=== PATIENT | male | born 1935 | race Caucasian/White ===

== ENCOUNTER 2020-03-06 10:01 | Inpatient (IN) ==
[2020-03-06 11:09] LABS: Hematocrit 41.2 % (40.1-51.0); Hemoglobin 14.5 g/dL (13.7-17.5); Mean Cell Volume 90.2 fL (80.0-100.0); Mean Corpuscular HGB Conc 35.2 g/dL (31.0-36.0); Mean Platelet Volume 10.5 fL (7.4-10.4); Platelet Count 216 K/mcL (140-440); RBC 4.57 M/mcL (4.63-6.08); Red Cell Distribution Width 11.8 % (11.5-14.5); WBC 11.8 K/mcL (4.50-11.00)
[2020-03-06 11:28] LABS: ALT/SGPT 35 U/l (0-40); AST/SGOT 36 U/l (0-37); Albumin 3.3 gm/dL (3.2-5.2); Alkaline Phosphatase 49 U/L (39-117); Bilirubin,Total 0.6 mg/dL (0.0-1.0); Blood Urea Nitrogen 21 mg/dl (8-23); Calcium 8.8 mg/dl (8.6-10.4); Carbon Dioxide 22 mmol/L (22-30); Globulin 3.4 gm/dL (2.2-3.7); Glomerular Filtration Rate 56; Glucose 98 mg/dL (70-105)
[2020-03-06] MEDS ORDERED: ACETAMINOPHEN 325 MG TABLET PO ONE (11:35)
[2020-03-06 11:40] LABS: Chloride 95 mmol/L (96-108)
[2020-03-06 11:43] LABS: Band Neutrophils % 3 % (0-10); Lymphocytes % 8 % (15-49); Monocytes % (Manual) 5 % (1-12); Platelet Estimate NORMAL (NORMAL); RBC Morphology NORMAL (NORMAL); Reactive Lymphocytes 3 % (0-2); Segmented Neutrophils % 81 % (38-78)
--- NOTE | 2020-03-06 12:28 | XRay Report ---
CLINICAL INFORMATION: sob, covid + COMPARISON: 03/03/2020. FINDINGS: Heart size, mediastinum and pulmonary vessels are normal. Moderate patchy infiltrates have progressed in the mid and lower lungs. No effusions. IMPRESSION: Moderate patchy infiltrates progressing in the mid and lower lungs. Interpreted and Authenticated by: Hayden Johnston 03/06/20
[2020-03-06] MEDS ORDERED: AZITHROMYCIN 500 MG in DEXTROSE 5% IN WATER 250 ML IV ONE (12:31)
[2020-03-06 12:32] LABS: Appearance,Urine CLEAR; Bacteria,Urine 0 /hpf (0); Bilirubin,Urine NEG (NEG); Color,Urine YELLOW; Culture Indicated,Urine NO; Glucose,Urine (UA) NEGATIVE (NEG); Ketones,Urine NEG (NEG); Leukocyte Esterase,Urine NEG /uL (NEG); Mucus,Urine FEW /hpf (0); Nitrate,Urine NEG (NEG); Protein,Urine NEG (NEG); Specific Gravity,Urine 1.018 (1.000-1.035); Urine Blood 0.03 mg/dL (<0.03); Urine RBC < 1 /hpf (0-1); Urine Squamous Epithelial Cell 0 /hpf (0-4); Urine WBC 1 /hpf (0-4); Urobilinogen,Urine NEG (NEG)
--- NOTE | 2020-03-06 12:43 | Cat Scan Report ---
CLINICAL INFORMATION: Confusion Covid positive COMPARISON: None. TECHNIQUE: 2.5 mm helical slices were obtained in the skull base to vertex. Following reconstruction, axial reformatted images were reviewed at bone and parenchymal windows. The exam was performed using radiation dose optimization techniques including, but not limited to, automated exposure control, adjustment of the mA and/or kV according to patient size and use of iterative reconstruction technique. FINDINGS: The ventricles, sulci, fissures, and cisterns are symmetrically enlarged compatible with mild age-related atrophy. There is no subdural hemorrhage or other extra-axial fluid collection or mass appreciated. Moderate punctate calcifications seen within both globus pallidus and right dentate nucleus region of the right cerebellum. These are likely physiologic. There are also small perivascular calcifications in the stout radiata fibers of the frontal and parietal region. There is no intracerebral hemorrhage, mass effect or edema. Bone windows show no osseous abnormality.. IMPRESSION: Mild atrophy with chronic ischemic changes in the deep cerebral white matter compatible with age. Calcifications in both globus pallidus, right dentate nucleus and perivascular regions of the frontal parietal centrum semiovale regions is likely physiologic. Occasionally, this finding can indicate hypoparathyroidism, pseudohypoparathyroidism and a variety of other rare conditions.. Please correlate with serum calcium levels. Interpreted and Authenticated by: Hayden Johnston 03/06/20
--- NOTE | 2020-03-06 12:51 | Emergency Department Note ---
HPI General Chief complaint: Cold/Flu Symptoms Stated complaint: COVID + Time Seen by Provider: 03/06/20 10:08 Source: patient Mode of arrival: ambulatory Limitations: no limitations History of Present Illness HPI Narrative: Narrative: 84-year-old male presents with generalized not feeling well. Was recently diagnosed with COVID. States he is short of breath but it does not really bother him. States the biggest complaint is generalized weakness. States he cannot quite describe it but he can just feel something is wrong and does not feel good. He is fallen multiple times in the last 24 hours. Unsure if he is hit his head. Unsure if he is lost consciousness but does not believe so. Denies being on any blood thinners. Denies any head or neck pain. No back pain. States he knows he is just confused and delirious and cannot put a thought together and is getting worse and worse. He is unsure if it is related to his COVID or not. His daughter brings him in today. She was available to talk to by phone but was not in the ER with him. She states that he is more and more confused and just generally weak and I cannot take care of him at home. She is afraid something else is going on as he's getting progressively worse. Related Data Home Medications Medication Instructions Recorded Confirmed aspirin 81 mg tablet,delayed 81 mg PO QDAY 02/27/20 03/06/20 release Previous Rx's Medication Instructions Recorded albuterol sulfate [Ventolin HFA] 2 puff INH Q4-6HP PRN #1 inhaler 03/04/20 azithromycin 250 mg PO QDAY 4 Days #4 tab 03/04/20 hydroxychloroquine 200 mg PO BID #14 tab 03/04/20 prednisone 20 mg PO QDAY #7 tab 03/04/20 Allergies Allergy/AdvReac Type Severity Reaction Status Date / Time No Known Drug Allergies Allergy Verified 03/06/20 10:05 Review of Systems ROS ROS Narrative: Narrative: All systems ED: reviewed and negative except as stated. [facility] Narrative Patient History Narrative: Narrative: Medical/Surgical/Family History All Active Problems (Updated 03/06/20 @ 13:49 by JULIANN Melissa) COVID-19 (Acute) Generalized weakness (Acute) Recurrent falls (Acute) Confusion (Acute) Pneumonia due to 2019 novel coronavirus (Acute) Viral syndrome (Acute) Fatigue (Acute) Dyspnea (Acute) Vasovagal syncope (Acute) Compression of lumbar vertebra (Acute) Cellulitis (Acute) Medical History Dyspnea (Acute) Fatigue (Acute) Vasovagal syncope (Acute) Viral syndrome (Acute) Surgical History History of tonsillectomy (Acute) Hx of appendectomy (Acute) Social History Smoking Status: Never smoker Exam Narrative Narrative: Narrative: General Limitations: no limitations General appearance: Present alert (Alert and oriented x4 but very forgetful and at times has a hard time finishing a sentence or putting thoughts together.) Head Head: Present atraumatic and normocephalic Eye Eye: Present normal appearance; Absent conjunctival injection ENT ENT: Present mucous membranes moist Chest Chest: Present symmetric chest wall rise Respiratory Respiratory: Present normal lung sounds bilaterally; Absent respiratory distress, rales/crackles, wheezes, stridor and accessory muscle use Cardiovascular Cardiovascular: Present regular rate and normal heart sounds Adbominal Abdominal: Present soft and normal bowel sounds; Absent distention, tenderness and guarding Extremities Extremities: Present normal inspection Neurological Neurological: Present alert and oriented X3 Psychiatric Psychiatric: Present normal affect and normal mood Skin Skin: Present warm (WNL), hot, diaphoretic and intact Course Vital Signs Vital signs: Vital Signs Temperature 100.8 F H 03/06/20 10:02 Pulse Rate 89 03/06/20 10:02 Respiratory Rate 24 H 03/06/20 10:02 Blood Pressure 154/88 03/06/20 10:02 Pulse Oximetry (%) 97 03/06/20 10:02 Temperature 100.8 F H 03/06/20 11:44 Pulse Rate 78 03/06/20 13:30 Respiratory Rate 24 H 03/06/20 13:30 Blood Pressure 133/78 03/06/20 13:30 Pulse Oximetry (%) 91 03/06/20 13:30 [facility] MDM Narrative Medical decision making narrative: Narrative: Patient's vital signs remained stable throughout his stay including O2 sats of 98 to 99% on room air. He is febrile with a temp in the 100s. He does show frequent poor memory and difficulty putting thoughts and sentences together. He has fallen frequently in the family is very much pushing for admission. We did give him a dose of IV antibiotics for progressing infiltrates in his lungs. I do have a call into the [facility] to see if patient meets admission criteria at 1254 At 1345 I did speak with the hospitalist, Dr. Warner who agrees to accept this patient. This patient will probably need to be admitted and potentially placement somewhere where he has more help than they are able to give him at home. Lab Data Lab results reviewed: Yes I reviewed the patient's lab results. Result diagrams: 03/06/20 10:20 03/06/20 10:20 Labs: Lab Results 03/06/20 03/06/20 03/06/20 Range/Units 10:20 10:20 10:20 WBC 11.8 H (4.50-11.00) K/mcL RBC 4.57 L (4.63-6.08) M/mcL Hgb 14.5 (13.7-17.5) g/dL Hct 41.2 (40.1-51.0) % MCV 90.2 (80.0-100.0) fL MCH 31.7 (26.0-34.0) pg MCHC 35.2 (31.0-36.0) g/dL RDW 11.8 (11.5-14.5) % Plt Count 216 (140-440) K/mcL MPV 10.5 H (7.4-10.4) fL Total Counted 100 Seg Neutrophils % 81 H (38-78) % Band Neutrophils % 3 (0-10) % Lymphocytes % 8 L (15-49) % Monocytes % (Manual) 5 (1-12) % Reactive Lymphocytes 3 H (0-2) % Platelet Estimate Normal (NORMAL) RBC Morphology Normal (NORMAL) VBG Lactic Acid 1.8 (0.5-2.0) mmol/L Sodium 131 L (133-145) mmol/L Potassium 4.0 (3.3-5.1) mmol/L Chloride 95 L (96-108) mmol/L Carbon Dioxide 22 (22-30) mmol/L Anion Gap 14.0 (8-16) BUN 21 (8-23) mg/dl Creatinine 1.2 (0.7-1.2) mg/dl GFR Calculation 56 Glucose 98 (70-105) mg/dL Calcium 8.8 (8.6-10.4) mg/dl Total Bilirubin 0.6 (0.0-1.0) mg/dL AST 36 (0-37) U/l ALT 35 (0-40) U/l Alkaline Phosphatase 49 (39-117) U/L Total Protein 6.7 (5.9-8.4) gm/dL Albumin 3.3 (3.2-5.2) gm/dL Globulin 3.4 (2.2-3.7) gm/dL Albumin/Globulin Ratio 1.0 (1.0-2.3) Procalcitonin (<0.10) ng/mL Urine Color Urine Appearance Urine pH (5.0-9.0) Ur Specific [place] (1.000-1.035) Urine Protein (NEG) mg/dL Urine Glucose (UA) (NEG) mg/dL Urine Ketones (NEG) mg/dL Urine Occult Blood (<0.03) mg/dL Urine Nitrate (NEG) Urine Bilirubin (NEG) mg/dL Urine Urobilinogen (NEG) mg/dL Ur Leukocyte Esterase (NEG) /uL Urine RBC (0-1) /hpf Urine WBC (0-4) /hpf Ur Squamous Epith Cells (0-4) /hpf Urine Bacteria (0) /hpf Urine Mucus (0) /hpf Ur Culture Indicated? 03/06/20 03/06/20 Range/Units 10:20 11:55 WBC (4.50-11.00) K/mcL RBC (4.63-6.08) M/mcL Hgb (13.7-17.5) g/dL Hct (40.1-51.0) % MCV (80.0-100.0) fL MCH (26.0-34.0) pg MCHC (31.0-36.0) g/dL RDW (11.5-14.5) % Plt Count (140-440) K/mcL MPV (7.4-10.4) fL Total Counted Seg Neutrophils % (38-78) % Band Neutrophils % (0-10) % Lymphocytes % (15-49) % Monocytes % (Manual) (1-12) % Reactive Lymphocytes (0-2) % Platelet Estimate (NORMAL) RBC Morphology (NORMAL) VBG Lactic Acid (0.5-2.0) mmol/L Sodium (133-145) mmol/L Potassium (3.3-5.1) mmol/L Chloride (96-108) mmol/L Carbon Dioxide (22-30) mmol/L Anion Gap (8-16) BUN (8-23) mg/dl Creatinine (0.7-1.2) mg/dl GFR Calculation Glucose (70-105) mg/dL Calcium (8.6-10.4) mg/dl Total Bilirubin (0.0-1.0) mg/dL AST (0-37) U/l ALT (0-40) U/l Alkaline Phosphatase (39-117) U/L Total Protein (5.9-8.4) gm/dL Albumin (3.2-5.2) gm/dL Globulin (2.2-3.7) gm/dL Albumin/Globulin Ratio (1.0-2.3) Procalcitonin 0.12 H (<0.10) ng/mL Urine Color Yellow Urine Appearance Clear Urine pH 5.0 (5.0-9.0) Ur Specific [place] 1.018 (1.000-1.035) Urine Protein Neg (NEG) mg/dL Urine Glucose (UA) Negative (NEG) mg/dL Urine Ketones Neg (NEG) mg/dL Urine Occult Blood 0.03 A (<0.03) mg/dL Urine Nitrate Neg (NEG) Urine Bilirubin Neg (NEG) mg/dL Urine Urobilinogen Neg (NEG) mg/dL Ur Leukocyte Esterase Neg (NEG) /uL Urine RBC < 1 (0-1) /hpf Urine WBC 1 (0-4) /hpf Ur Squamous Epith Cells 0 (0-4) /hpf Urine Bacteria 0 (0) /hpf Urine Mucus Few (0) /hpf Ur Culture Indicated? No Radiology Data Radiology results reviewed: Yes I reviewed the patient's radiology results. Discharge Plan Patient/Caregiver Discharge Instructions Pt seen by HEALTH INFORMATION SYSTEMS TECHNICIAN/PA only: Yes Clinical Impression: COVID-19, Generalized weakness, Recurrent falls, Confusion Patient Disposition: Xfer As Outpt/Obs ([facility]) Condition: Fair Follow up with: Yayo Gan DO [Primary Care Provider] - Prescriptions: No Action aspirin 81 mg tablet,delayed release (DR/EC) 81 mg PO QDAY RF: 0 albuterol sulfate [Ventolin HFA] 1 PUFF inhaler 2 puff INH Q4-6HP PRN (Reason: Wheezing) Qty: 1 RF: 0 hydroxychloroquine 200 mg tablet 200 mg PO BID Qty: 14 RF: 0 azithromycin 250 mg tablet 250 mg PO QDAY 4 Days Qty: 4 RF: 0 prednisone 20 mg tablet 20 mg PO QDAY Qty: 7 RF: 0
[2020-03-06] MEDS ORDERED: 0.9 % SODIUM CHLORIDE 1,000 ML IV ONE (13:59)
[2020-03-06] MEDS ORDERED: DEXAMETHASONE 4 MG TABLET PO ONE (14:15)
--- NOTE | 2020-03-06 14:18 | Internal Med History&Physical ---
HPI History of Present Illness Patient information: Note initiated : 03/06/20 at 2:09 pm Service Date, if different from initiated Date: [] Patient: Billy Del Valle 84 y/o M admitted on for COVID +. Chief Complaint: [] History of present illness: Mr. Del Valle is a 84 year old M Who presents the ED with generalized weakness falling confusion. He was diagnosed with COVID 21st of minor care but then went back into the ED on the because he felt weak and confused. Vital signs were stable that time and no other critical findings patient was discharged this medication. Patient felt he was doing better but then yesterday started becoming worse again. He describes increasing weakness, he is fallen several times. Had increased confusion as he states he is quite foggy. He is unsteady on his feet. He has a cough which is mildly productive. He complains of some shortness of breath. Family stated he has confusion at times but worse lately. In the ED included a CT brain which showed some mild atrophy and some chronic ischemic changes but no acute pathology. Chest x-ray bilateral infiltrates. Review of Systems: Positives as above including headache and some chest pain when he coughs. Denies fever/chills/nausea/vomiting/abdominal pain/cough/dyspnea/diarrhea. Remaining 10 point review of system reviewed negative PFSH PFSH All Active Problems (Updated 03/06/20 @ 13:49 by JULIANN Melissa) COVID-19 (Acute) Generalized weakness (Acute) Recurrent falls (Acute) Confusion (Acute) Pneumonia due to 2019 novel coronavirus (Acute) Viral syndrome (Acute) Fatigue (Acute) Dyspnea (Acute) Vasovagal syncope (Acute) Compression of lumbar vertebra (Acute) Cellulitis (Acute) Medical History Dyspnea (Acute) Fatigue (Acute) Vasovagal syncope (Acute) Viral syndrome (Acute) Surgical History History of tonsillectomy (Acute) Hx of appendectomy (Acute) Social History smoking status: Never smoker MEDS/ALLERGIES Home Medications and Allergies Home Medications Medication Instructions Recorded Confirmed Type aspirin 81 mg tablet,delayed 81 mg PO QDAY 02/27/20 03/06/20 History release albuterol sulfate [Ventolin HFA] 2 puff INH Q4-6HP PRN #1 inhaler 03/04/20 03/06/20 Rx azithromycin 250 mg PO QDAY 4 Days #4 tab 03/04/20 03/06/20 Rx hydroxychloroquine 200 mg PO BID #14 tab 03/04/20 03/06/20 Rx prednisone 20 mg PO QDAY #7 tab 03/04/20 03/06/20 Rx Allergies Allergy/AdvReac Type Severity Reaction Status Date / Time No Known Drug Allergies Allergy Verified 03/06/20 10:05 EXAM Constitutional Vitals: Temp Pulse Resp BP Pulse Ox 100.8 F H 78 24 H 133/78 91 03/06/20 11:44 03/06/20 13:30 03/06/20 13:30 03/06/20 13:30 03/06/20 13:30 Exam: General: Awake, No acute Distress Eyes/N/T: EOMI, PERRL, dry MM Head/Neck: neck supple, normocephalic atraumatic CV: RRR, No murmurs, normal s1/s2 Pulm: Clear b/l, no wheezing/rhonchi/rales Abd: soft, nontender, +BS x4 Ext: no clubbing/cyanosis/edema Neuro: no focal deficits, moves all extremities, CN 2-12 grossly intact, symmetrical strength b/l upper/lower, sensations intact b/l upper/lower. However, slow to answer questions but although clear and answering. Sometimes after repeat my question. Skin: warm/dry DATA Data Completed and Pending Labs: Labs from last 24 hours 03/06/20 03/06/20 03/06/20 11:55 10:20 10:20 WBC RBC Hgb Hct MCV MCH MCHC RDW Plt Count MPV Total Counted Seg Neutrophils % Band Neutrophils % Lymphocytes % Monocytes % (Manual) Reactive Lymphocytes Platelet Estimate RBC Morphology VBG Lactic Acid 1.8 Sodium Potassium Chloride Carbon Dioxide Anion Gap BUN Creatinine GFR Calculation Glucose Calcium Total Bilirubin AST ALT Alkaline Phosphatase Total Protein Albumin Globulin Albumin/Globulin Ratio Procalcitonin 0.12 H Urine Color Yellow Urine Appearance Clear Urine pH 5.0 Ur Specific [place] 1.018 Urine Protein Neg Urine Glucose (UA) Negative Urine Ketones Neg Urine Occult Blood 0.03 A Urine Nitrate Neg Urine Bilirubin Neg Urine Urobilinogen Neg Ur Leukocyte Esterase Neg Urine RBC < 1 Urine WBC 1 Ur Squamous Epith Cells 0 Urine Bacteria 0 Urine Mucus Few Ur Culture Indicated? No 03/06/20 03/06/20 10:20 10:20 WBC 11.8 H RBC 4.57 L Hgb 14.5 Hct 41.2 MCV 90.2 MCH 31.7 MCHC 35.2 RDW 11.8 Plt Count 216 MPV 10.5 H Total Counted 100 Seg Neutrophils % 81 H Band Neutrophils % 3 Lymphocytes % 8 L Monocytes % (Manual) 5 Reactive Lymphocytes 3 H Platelet Estimate Normal RBC Morphology Normal VBG Lactic Acid Sodium 131 L Potassium 4.0 Chloride 95 L Carbon Dioxide 22 Anion Gap 14.0 BUN 21 Creatinine 1.2 GFR Calculation 56 Glucose 98 Calcium 8.8 Total Bilirubin 0.6 AST 36 ALT 35 Alkaline Phosphatase 49 Total Protein 6.7 Albumin 3.3 Globulin 3.4 Albumin/Globulin Ratio 1.0 Procalcitonin Urine Color Urine Appearance Urine pH Ur Specific [place] Urine Protein Urine Glucose (UA) Urine Ketones Urine Occult Blood Urine Nitrate Urine Bilirubin Urine Urobilinogen Ur Leukocyte Esterase Urine RBC Urine WBC Ur Squamous Epith Cells Urine Bacteria Urine Mucus Ur Culture Indicated? A/P Narrative A/P Narrative: A: *COVID-19 PNA: -low PCT, no bandemia *SIRS: 2/2 above *Encephalopathy (acute on intermittently chronic): 2/2 above -likely underlying MCI vs early dementia *Generalized weakness/fallin/2 above *Hyponatremia: *Volume depletion: *Hyponatremia: *HLD: * P: Remdesivir and dexamethasone -SC pending, hold on abx for now -prn O2 -IS, -IVF - -PT/OT -CM for placement -ppx: Lovenox Time Spent With Patient Time: Total time spent is greater than 50% in coordination of care (as documented) at patient's floor/unit and/or counseling patient:
[2020-03-06] MEDS ORDERED: REMDESIVIR 200 MG in 0.9 % SODIUM CHLORIDE 250 ML IV ONE (15:00)
[2020-03-06] MEDS ORDERED: POTASSIUM CHLORIDE 40 MEQ in DEXTROSE 5% IN WATER 500 ML IV PRN (15:27)
[2020-03-06] MEDS ORDERED: POLYETHYLENE GLYCOL 3350 17 GM PACKET PO PRN (15:27)
[2020-03-06] MEDS ORDERED: 0.9 % SODIUM CHLORIDE 1,000 ML IV SCH (15:27)
[2020-03-06] MEDS ORDERED: IPRATROPIUM/ALBUTEROL SULFATE 1 PUFF INHALER INH PRN ×2 (15:27→16:00)
[2020-03-06] MEDS ORDERED: POTASSIUM CHLORIDE 20 MEQ TABLET PO PRN ×2 (15:27)
[2020-03-06] MEDS ORDERED: ONDANSETRON 4 MG/2 ML VIAL IV PRN (15:27)
[2020-03-06] MEDS ORDERED: SENNOSIDES 1 TABLET PO PRN (15:27)
[2020-03-06] MEDS ORDERED: ACETAMINOPHEN 325 MG TABLET PO PRN (15:27)
[2020-03-06] MEDS ORDERED: MAGNESIUM SULFATE 2 GM/50 ML BAG IV PRN (15:27)
[2020-03-06] MEDS: 0.9 % SODIUM CHLORIDE 10 ML SYRINGE IV SCH (22:23)
[2020-03-07] MEDS: 0.9 % SODIUM CHLORIDE 10 ML SYRINGE IV SCH ×3 (05:14→23:04)
[2020-03-07 06:43] LABS: Basophils # (Auto) 0.01 K/mcL (0.00-0.30); Basophils % (Auto) 0.1 % (0.0-2.0); Eosinophils # (Auto) 0 K/mcL (0.00-0.70); Eosinophils % (Auto) 0 % (0.0-7.0); Granulocytes % (Auto) 88.3 % (38.0-78.0); Hematocrit 37.7 % (40.1-51.0); Hemoglobin 13.1 g/dL (13.7-17.5); Lymphocytes # (Auto) 0.64 K/mcL (1.50-4.80); Lymphocytes % (Auto) 7.4 % (15.5-49.0); Mean Cell Volume 92.4 fL (80.0-100.0); Mean Corpuscular HGB Conc 34.7 g/dL (31.0-36.0); Mean Platelet Volume 10.6 fL (7.4-10.4); Monocytes # (Auto) 0.36 K/mcL (0.10-0.90); Monocytes % (Auto) 4.2 % (1.0-12.0); Platelet Count 207 K/mcL (140-440); RBC 4.08 M/mcL (4.63-6.08); Red Cell Distribution Width 12.1 % (11.5-14.5); WBC 8.7 K/mcL (4.50-11.00)
[2020-03-07 06:47] LABS: ALT/SGPT 47 U/l (0-40); AST/SGOT 43 U/l (0-37); Albumin 2.7 gm/dL (3.2-5.2); Albumin/Globulin Ratio 0.8 (1.0-2.3); Alkaline Phosphatase 45 U/L (39-117); Bilirubin,Direct < 0.2 mg/dL (0.0-0.3); Bilirubin,Total 0.5 mg/dL (0.0-1.0); Blood Urea Nitrogen 19 mg/dl (8-23); Carbon Dioxide 20 mmol/L (22-30); Chloride 104 mmol/L (96-108); Globulin 3.2 gm/dL (2.2-3.7); Glomerular Filtration Rate 83; Glucose 125 mg/dL (70-105); Lactate Dehydrogenase 336 U/L (94-250); Phosphorous 3.5 mg/dL (2.7-4.5); Triglycerides 61 mg/dl (<150)
--- NOTE | 2020-03-07 07:28 | Internal Med Progress Note ---
SUBJECTIVE Subjective Patient information: Note initiated : 03/07/20 at 7:25 am Service Date, if different from initiated Date: [] Patient: Billy Del Valle 84 y/o M admitted on 03/06/20 for COVID +. Chief Complaint: [] Interval history: History of present illness: Mr. Del Valle is a 84 year old M Who presents the ED with generalized weakness falling confusion. He was diagnosed with COVID of minor care but then went back into the ED on the because he felt weak and confused. Vital signs were stable that time and no other critical findings patient was discharged this medication. Patient felt he was doing better but then yesterday started becoming worse again. He describes increasing weakness, he is fallen several times. Had increased confusion as he states he is quite foggy. He is unsteady on his feet. He has a cough which is mildly productive. He complains of some shortness of breath. Family stated he has confusion at times but worse lately. In the ED included a CT brain which showed some mild atrophy and some chronic ischemic changes but no acute pathology. Chest x-ray bilateral infiltrates. 03/07 Feeling better today. Minimal cough. No shortness of breath while in bed. A little stronger today. Review of Systems: denies headache/fever/chills/nausea/vomiting/chest or abdominal pain/diarrhea. Otherwise see above. Constitutional Vitals: Vital Signs Temp Pulse Resp BP Pulse Ox 97.8 F 71 18 138/88 93 03/07/20 04:01 03/07/20 01:36 03/07/20 00:00 03/07/20 04:01 03/07/20 04:10 Period Temp Pulse Resp BP Sys/Ann Pulse Ox Last 24 Hr 97.5 F-100.8 F 63-91 16-31 133-169/71-99 91-99 Intake and Output 03/06/20 03/07/20 03/07/20 21:59 05:59 13:59 Intake Total 1500 Output Total 1000 1100 Balance 500 -1100 Weight 76.793 kg Intake & Output: Intake & Output 03/06/20 03/07/20 03/07/20 21:59 05:59 13:59 Intake Total 1500 Output Total 1000 1100 Balance 500 -1100 Weight 76.793 kg Intake: IV 1500 Sodium Chloride 0.9% 1,000 ml @ 1000 Wide Open IV BOLUS ONE Rx#: [id number] Zithromax 500 mg In Dextrose 5% 250 in Water 250 ml @ 250 mls/hr IV ONCE ONE Rx#:[id number] Remdesivir 200 mg In Sodium 250 Chloride 0.9% 250 ml @ 500 mls/ hr IV ONCE ONE Rx#:[id number] Output: Void Amount 1000 1100 Other: Urine Appearance Clear Clear Urine Color Pale Pale Exam: General: Awake, No acute Distress Eyes/N/T: EOMI, Head/Neck: neck supple, CV: RRR, No murmurs, Pulm: Clear b/l, no wheezing/rhonchi/rales Abd: soft, nontender, +BS x4 Ext: no clubbing/cyanosis/edema Neuro: no focal deficits, moves all extremities, mentation more clear today Skin: warm/dry OBJ DATA Labs CBC & Chem 7: 03/07/20 04:44 03/07/20 04:44 Labs: Abnormal Lab Results 03/07/20 03/07/20 03/06/20 04:44 04:44 11:55 WBC RBC 4.08 L Hgb 13.1 L Hct 37.7 L MPV 10.6 H Gran % 88.3 H Lymph % (Auto) 7.4 L Lymph # (Auto) 0.64 L Seg Neutrophils % Lymphocytes % Reactive Lymphocytes Sodium Chloride Carbon Dioxide 20 L Glucose 125 H Calcium 8.0 L AST 43 H ALT 47 H Lactate Dehydrogenase 336 H Albumin 2.7 L Albumin/Globulin Ratio 0.8 L Procalcitonin Urine Occult Blood 0.03 A 03/06/20 03/06/20 03/06/20 10:20 10:20 10:20 WBC 11.8 H RBC 4.57 L Hgb Hct MPV 10.5 H Gran % Lymph % (Auto) Lymph # (Auto) Seg Neutrophils % 81 H Lymphocytes % 8 L Reactive Lymphocytes 3 H Sodium 131 L Chloride 95 L Carbon Dioxide Glucose Calcium AST ALT Lactate Dehydrogenase Albumin Albumin/Globulin Ratio Procalcitonin 0.12 H Urine Occult Blood Meds: Medications Acetaminophen (Tylenol) 650 mg PO Q6HP PRN PRN Reason: PAIN/FEVER > 101 Albuterol/Ipratropium (Combivent) 2 puff INH Q4HP PRN PRN Reason: Dyspnea Aspirin (Aspirin) 81 mg PO DAILY [facility] Dexamethasone (Decadron) 6 mg PO DAILY [facility] Enoxaparin Sodium (Lovenox) 40 mg SQ DAILY [facility] Potassium Chloride 40 meq/ (Dextrose) 520 mls @ 130 mls/hr IV UD PRN PRN Reason: Potassium < 3 Magnesium Sulfate (Magnesium Sulfate) 2 gm in 50 mls @ 50 mls/hr IV UD PRN PRN Reason: Magnesium </= 1.6 REMDESIVIR 100 mg/ Sodium (Chloride) 250 mls @ 500 mls/hr IV DAILY [facility] Stop: 03/10/20 09:29 Ondansetron HCl (Zofran) 4 mg IV Q4HP PRN PRN Reason: Nausea And Vomiting Polyethylene Glycol (Miralax) 17 gm PO DAILYP PRN PRN Reason: Constipation Potassium Chloride (Kdur) 40 meq PO UD PRN PRN Reason: Potssium is 3-3.5 Potassium Chloride (Kdur) 40 meq PO UD PRN PRN Reason: Potassium < 3 Senna (Senokot) 2 tab PO DAILYP PRN PRN Reason: Constipation Sodium Chloride (Saline Flush) 10 ml IV Q8 [facility] Last Admin: 03/07/20 05:14 Dose: 10 ml Documented by: A/P Narrative A/P Narrative: A: *COVID-19 PNA: -low PCT, no bandemia *SIRS: 2/2 above *Encephalopathy (acute on intermittently chronic): 2/2 above -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
[2020-03-07] MEDS ORDERED: REMDESIVIR 100 MG IV SCH (09:00)
[2020-03-07] MEDS: ASPIRIN 81 MG TAB.CHEW PO SCH (09:09)
[2020-03-07] MEDS: ENOXAPARIN 40 MG/0.4 ML SYRINGE SQ SCH (09:09)
[2020-03-07] MEDS: REMDESIVIR 100 MG in 0.9 % SODIUM CHLORIDE 250 ML IV SCH (09:13)
[2020-03-07] MEDS: DEXAMETHASONE 4 MG TABLET PO SCH (09:23)
[2020-03-08] MEDS: 0.9 % SODIUM CHLORIDE 10 ML SYRINGE IV SCH (05:50)
[2020-03-08] MEDS: ASPIRIN 81 MG TAB.CHEW PO SCH (08:08)
[2020-03-08] MEDS: ENOXAPARIN 40 MG/0.4 ML SYRINGE SQ SCH (08:09)
[2020-03-08] MEDS: DEXAMETHASONE 4 MG TABLET PO SCH (08:09)
[2020-03-08 08:56] LABS: Basophils # (Auto) 0.01 K/mcL (0.00-0.30); Basophils % (Auto) 0.1 % (0.0-2.0); Eosinophils # (Auto) 0 K/mcL (0.00-0.70); Eosinophils % (Auto) 0 % (0.0-7.0); Granulocytes % (Auto) 82.7 % (38.0-78.0); Hemoglobin 13.9 g/dL (13.7-17.5); Lymphocytes # (Auto) 1.38 K/mcL (1.50-4.80); Lymphocytes % (Auto) 11.8 % (15.5-49.0); Mean Cell Volume 88.6 fL (80.0-100.0); Mean Corpuscular HGB Conc 35.6 g/dL (31.0-36.0); Mean Platelet Volume 10.3 fL (7.4-10.4); Monocytes # (Auto) 0.63 K/mcL (0.10-0.90); Monocytes % (Auto) 5.4 % (1.0-12.0); Platelet Count 236 K/mcL (140-440); Red Cell Distribution Width 11.7 % (11.5-14.5); WBC 11.7 K/mcL (4.50-11.00)
[2020-03-08 09:15] LABS: ALT/SGPT 58 U/l (0-40); AST/SGOT 34 U/l (0-37); Albumin 2.8 gm/dL (3.2-5.2); Albumin/Globulin Ratio 0.9 (1.0-2.3); Alkaline Phosphatase 47 U/L (39-117); Bilirubin,Total 0.6 mg/dL (0.0-1.0); Blood Urea Nitrogen 21 mg/dl (8-23); Calcium 8.9 mg/dl (8.6-10.4); Carbon Dioxide 20 mmol/L (22-30); Chloride 103 mmol/L (96-108); Glomerular Filtration Rate 79; Glucose 115 mg/dL (70-105)
[2020-03-08] MEDS: REMDESIVIR 100 MG in 0.9 % SODIUM CHLORIDE 250 ML IV SCH (09:47)
--- NOTE | 2020-03-08 11:54 | Discharge Summary ---
Discharge Provider Provider Patient information: Note initiated : 03/08/20 at 11:47 am Service Date, if different from initiated Date: [] Patient: Billy Del Valle 84 y/o M admitted on 03/06/20 for COVID +. Chief Complaint: [] Date of admission: 03/06/20 15:26 Discharge date: 03/08/20 Primary care physician: Yayo Gan Consults: 03/06/20 13:47 Consult to Physician [CONS] Stat Comment: Consulting Provider: Babar Warner Reason For Exam: Physician to Consult Discharge Meds Discharge Medications Home Medications aspirin 81 mg tablet,delayed release 81 mg PO QDAY 02/27/20 [History Confirmed 03/06/20 Last Taken Unknown] albuterol sulfate [Ventolin HFA] 2 puff INH Q4-6HP PRN #1 inhaler 03/04/20 [Rx Confirmed 03/06/20 Last Taken Unknown] dexamethasone 6 mg PO DAILY #2 tab 03/08/20 [Rx Last Taken Unknown] COURSE Hospital Course Hospital course: 1. Acute hypoxic respiratory failure Pulse ox Patient has been on room air with good oxygen saturation since yesterday 2. COVID-19 PNA: -low PCT, no bandemia -Patient was treated with remdesivir and dexamethasone since March 07. Patient condition improved and he has been on room air since yesterday. Patient had met discharge criteria but he has not completed 5-day course of remdesivir. Discussed this case on morning meeting including supervisor mail carriers and the pharmacist. We decided to discharge this patient today. Patient refused SNF and home health. He would like to go home. She was advised her to continue be quarantined. 3. SIRS: 2/2 above. Resolved 4. Encephalopathy (acute on intermittently chronic): 2/2 above -likely underlying MCI vs early dementia -Resolved 5. Generalized weakness/Fallin/2 above. Improving 6. Hyponatremia: 7. Volume depletion: resolved 8. Hyponatremia: resolved 9. HLD: He was diagnosed with COVID of minor care but then went back into the ED on the because he felt weak and confused. Vital signs were stable that time and no other critical findings patient was discharged this medication. Patient felt he was doing better but then yesterday started becoming worse again. He describes increasing weakness, he is fallen several times. Had increased confusion as he states he is quite foggy. He is unsteady on his feet. He has a cough which is mildly productive. He complains of some shortness of breath. Family stated he has confusion at times but worse lately. In the ED included a CT brain which showed some mild atrophy and some chronic ischemic changes but no acute pathology. Chest x-ray bilateral infiltrates. 03/07 Feeling better today. Minimal cough. No shortness of breath while in bed. A little stronger today. 03/08 He still complains of fatigue but improving. Otherwise he denied headache, dizziness, chest pain, shortness of breath, abdominal pain, dysuria, or fever chills. Vital signs are stable. He is on room air with a good oxygen saturation. He refused SNF and home health. he will be discharged home to follow with PCP. Continue dexamethasone. He needs to be quarantined and do more exercises. Call PCP for medical issues. Discharge diagnosis: COVID-19 pneumonia Time Spent with Patient Time attestation: Total time spent providing and/or coordinating discharge services: EXAM Constitutional Vitals: Temp Pulse Resp BP Pulse Ox 98 F 65 16 142/93 97 03/08/20 08:00 03/07/20 23:27 03/08/20 08:00 03/08/20 08:00 03/08/20 08:00 Additional findings Additional findings: General: Awake, No acute Distress Eyes/N/T: EOMI, Head/Neck: neck supple, CV: RRR, No murmurs, Pulm: Clear b/l, no wheezing/rhonchi/rales Abd: soft, nontender, +BS x4 Ext: no clubbing/cyanosis/edema Neuro: no focal deficits, moves all extremities, mentation more clear today Skin: warm/dry Discharge Data Data Completed and Pending Labs on day of discharge: Labs from last 24 hours 03/08/20 03/08/20 03/08/20 07:58 07:58 07:58 WBC 11.7 H RBC 4.40 L Hgb 13.9 Hct 39.0 L MCV 88.6 MCH 31.6 MCHC 35.6 RDW 11.7 Plt Count 236 MPV 10.3 Gran % 82.7 H Lymph % (Auto) 11.8 L Cobb % (Auto) 5.4 Eos % (Auto) 0 Baso % (Auto) 0.1 Gran # 9.68 H Lymph # (Auto) 1.38 L Cobb # (Auto) 0.63 Eos # (Auto) 0 Baso # (Auto) 0.01 Differential Comment Sodium 135 Potassium 3.9 Chloride 103 Carbon Dioxide 20 L Anion Gap 12.0 BUN 21 Creatinine 0.9 GFR Calculation 79 Glucose 115 H Calcium 8.9 Total Bilirubin 0.6 AST 34 ALT 58 H Alkaline Phosphatase 47 Ammonia 17 Total Protein 5.8 L Albumin 2.8 L Globulin 3.0 Albumin/Globulin Ratio 0.9 L Discharge Plan Patient/Caregiver Discharge Instructions Activity: increase activity as tolerated Diet: Regular Diet Instructions: COVID-19, Weakness (GEN), Pneumonia (GEN) Activity Restrictions/Additional Instructions: This discharge packet is provided to you to help keep you informed about your care. We want to ensure you get everything you need when you go home. You will also be receiving a call from us in a few days to follow up with you and see how you are doing since your discharge. This gives us a chance to listen to any concerns you maybe experiencing since you were discharged or any additional needs you may have, as well as providing us feedback on your care experience. We strive to always provide excellent care and thank you for your feedback and for choosing [facility]. Prescriptions: New dexamethasone 4 mg Tablet 6 mg PO DAILY Qty: 2 RF: 0 Continued aspirin 81 mg tablet,delayed release (DR/EC) 81 mg PO QDAY RF: 0 albuterol sulfate [Ventolin HFA] 1 PUFF inhaler 2 puff INH Q4-6HP PRN (Reason: Wheezing) Qty: 1 RF: 0 Discontinued hydroxychloroquine 200 mg tablet 200 mg PO BID Qty: 14 RF: 0 azithromycin 250 mg tablet 250 mg PO QDAY 4 Days Qty: 4 RF: 0 prednisone 20 mg tablet 20 mg PO QDAY Qty: 7 RF: 0 Follow Up Plan Follow up with: Yayo Gan DO [Primary Care Provider] - 03/23/20 11:15 am (This will be a phone call appointment.) Unknown [Outside] (pcp in 3 days. ) Patient Disposition: Home, Self-Care Prognosis: Fair Discharge Orders: Discharge Order (Routine); Ordered 03/08/20 Ordered By: Elmer FRANK VTE Deep Vein Thrombosis/Pulmonary Embolism Present on Admission: No
== END 2020-03-08 13:28 | disposition home or self-care (01) | DRG 177 ==
LOC: ED 10:01 → ICU 15:26
PROVIDERS: ADMIT Internal Medicine; ATTEND Internal Medicine